=== PATIENT | female | born 1990 | race American Indian/Alaskan Native ===

== ENCOUNTER 2017-05-29 22:25 | Inpatient (IN) | payer MEDICARE ==
[2017-05-29] MEDS ORDERED: LACTATED RINGERS 1,000 ML IV ONE (22:57)
[2017-05-30] MEDS ORDERED: BRETHINE ONE (00:05)
[2017-05-30] MEDS ORDERED: BRETHINE SUB-Q ONE (00:08)
[2017-05-30 00:29] LABS: Bacteria,Urine 1+ /HPF (Negative); Bilirubin,Urine NEG (Negative); Blood,Urine NEG (Negative); Ketones,Urine NEG (Negative); Leukocyte Esterase,Urine MOD (Negative); Mucus,Urine FEW /HPF; Nitrite,Urine NEG (Negative); Protein,Urine <15 mg/dL mg/dL (Negative); Urobilinogen,Urine < 2.0 mg/dL (<2.0)
[2017-05-30] MEDS ORDERED: BRETHINE SUB-Q STA (01:19)
[2017-05-30] MEDS ORDERED: ALUM-MAG HYDROX-SIMETH 200-200-20MG/5ML PO PRN (01:54)
[2017-05-30] MEDS ORDERED: AMBIEN PO PRN (01:54)
[2017-05-30] MEDS ORDERED: BENADRYL PO PRN (01:54)
[2017-05-30] MEDS ORDERED: SENOKOT S PO PRN (01:54)
[2017-05-30] MEDS ORDERED: MYLICON PO PRN (01:54)
[2017-05-30] MEDS ORDERED: MILK OF MAGNESIA PO PRN (01:54)
[2017-05-30] MEDS ORDERED: COLACE PO PRN (01:54)
[2017-05-30] MEDS ORDERED: ZOFRAN IV PRN (01:54)
[2017-05-30] MEDS ORDERED: TYLENOL PO PRN (01:54)
[2017-05-30] MEDS ORDERED: MAGNESIUM SULFATE 4GM/100ML 4 GM/100 ML BAG IV ONE (02:23)
[2017-05-30] MEDS: CELESTONE SOLUSPAN IM SCH (02:40)
[2017-05-30] MEDS ORDERED: CELESTONE SOLUSPAN IM SCH (03:00)
[2017-05-30] MEDS: MAGNESIUM SULFATE 40GM/1000ML 40 GM/1,000 ML BAG IV SCH ×2 (04:03→22:21)
[2017-05-30 06:26] LABS: Basophils % (Auto) 0.6 % (0.0-1.8); Eosinophils % (Auto) 0.9 % (0.0-4.3); Hematocrit 31.3 % (30.3-42.9); Hemoglobin 10.4 gm/dl (10.1-14.3); Mean Corpuscular HGB Conc 33 % (30-34); Mean Corpuscular Hemoglobin 30 pg (28-32); Mean Corpuscular Volume 91 fl (79-97); Platelet Count 161 K/mm3 (140-440); Red Blood Count 3.45 M/mm3 (3.65-5.03); White Blood Count 6.8 K/mm3 (4.5-11.0)
[2017-05-30 06:39] LABS: Bilirubin,Urine NEG (Negative); Blood,Urine NEG (Negative); Ketones,Urine 20 mg/dL (Negative); Leukocyte Esterase,Urine SM (Negative); Mucus,Urine 1+ /HPF; Nitrite,Urine NEG (Negative); Protein,Urine <15 mg/dL mg/dL (Negative); Urobilinogen,Urine < 2.0 mg/dL (<2.0)
[2017-05-30] MEDS: PRENATAL VITAMIN PO SCH (10:52)
[2017-05-30] MEDS: ROCEPHIN/NS 1 GM/50 ML 1 GM/50 ML BAG IV SCH (11:21)
--- NOTE | 2017-05-30 12:03 | Consultation ---
History of Present Illness Consult date: 05/30/17 Requesting physician: FIORELLA CARL Reason for consult: contractions (26 YO EGA @ 25 weeks with twin gestation, admitted following vaginal bleeding. She was noted to have PTL following hospital assessment. She has received Betamethasone X 1, and is on MgSO4 for tocolysis, as well as neuroprotection. At this time she denies any contractions, or bleeding. She has been followed by [facility] and was started on vaginal Pg due to cervical shortening noted) Past History Past Medical History: no pertinent history - Obstetrical History : 2 Medications and Allergies Allergies Allergy/AdvReac Type Severity Reaction Status Date / Time shellfish derived Allergy Angioedema Verified 05/29/17 22:57 Home Medications Medication Instructions Recorded Confirmed Last Taken Type Vit No.130/Iron/FA 1 tab PO DAILY 05/30/17 05/30/17 05/29/17 13:00 History [ Tablet] Active Meds: Active Medications Acetaminophen (Tylenol) 650 mg PO Q4H PRN PRN Reason: Pain MILD(1-3)/Fever >100.5/GONZALEZ Al Hydrox/Mg Hydrox/Simethicone (Alum-Mag Hydrox-Simeth 300-951-32oa/5ml) 30 ml PO Q6H PRN PRN Reason: Indigestion Betamethasone Acet/Betameth SodPhos (Celestone Soluspan) 12 mg IM Q24H PETERSON Stop: 05/31/17 02:27 Last Admin: 05/30/17 02:40 Dose: 12 mg Diphenhydramine HCl (Benadryl) 25 mg PO Q6H PRN PRN Reason: Itching Docusate Sodium (Colace) 100 mg PO Q12H PRN PRN Reason: Constipation Lactated Ringer's (Lactated Ringers) 1,000 mls @ 125 mls/hr IV DIRECT PETERSON Magnesium Sulfate (Magnesium Sulfate 40gm/1000ml) 40 gm in 1,000 mls @ 50 mls/ hr IV DIRECT PETERSON PRN Reason: 2 GM/HR Last Admin: 05/30/17 04:03 Dose: 2 gm/hr, 50 mls/hr Ceftriaxone Sodium (Rocephin/Ns 1 Gm/50 Ml) 1 gm in 50 mls @ 100 mls/hr IV Q24HR PETERSON PRN Reason: Protocol Last Admin: 05/30/17 11:21 Dose: 100 mls/hr Magnesium Hydroxide (Milk Of Magnesia) 30 ml PO QHS PRN PRN Reason: Laxative Effect Multivitamins/Iron/Calcium ( Vitamin) 1 each PO QDAY [facility] Last Admin: 05/30/17 10:52 Dose: 1 each Ondansetron HCl (Zofran) 4 mg IV Q6H PRN PRN Reason: Nausea And Vomiting Senna/Docusate Sodium (Senokot S) 2 tab PO Q12H PRN PRN Reason: Laxative Effect Simethicone (Mylicon) 80 mg PO Q6H PRN PRN Reason: Gas pain Zolpidem Tartrate (Ambien) 10 mg PO ONCE PRN PRN Reason: Sleep Review of Systems All systems: negative - Vital Signs Vital signs: Vital Signs Pulse BP Pulse Ox 83 126/65 99 05/29/17 22:41 05/29/17 22:41 05/29/17 22:41 Temp Pulse Resp BP Pulse Ox 98.3 F 95 H 18 101/57 97 05/30/17 07:55 05/30/17 11:30 05/30/17 07:55 05/30/17 11:30 05/30/17 07:55 Results Result Diagrams: 05/30/17 Unknown Abnormal lab results 05/29/17 05/30/17 05/30/17 Range/Units 22:40 04:44 Unknown RBC 3.45 L (3.65-5.03) M/mm3 Edwards % (Auto) 7.5 H (0.0-7.3) % Urine WBC (Auto) 8.0 H 12.0 H (0.0-6.0) /HPF All other labs normal. Ultrasound: report reviewed Assessment and Plan IMPRESSIONS: 1. IUP @ 25 weeks with di/di twins 2. Vaginal bleeding has resolved 3. PTL, on MgSO4 4. Cervical shortening noted on [facility] assessment with patient taking vaginal progesterone RECOMMENDATIONS: 1. Continue with MgSO4 X 24 hrs total treatment 2. Betamethasone repeat X 1 3. Document her cervical exam 4. With no regular contractions noted X 24 hours, and no significant cervical change she can be evaluated for discharge
[2017-05-30] MEDS: LACTATED RINGERS 1,000 ML IV SCH (19:10)
[2017-05-31] MEDS: CELESTONE SOLUSPAN IM SCH (02:43)
--- NOTE | 2017-05-31 07:38 | History and Physical Report ---
History of Present Illness Date of examination: 05/29/17 Date of admission: 05/30/17 02:53 Chief complaint: vaginal spotting and twins wth cramping History of present illness: This is a 26 yo at 25 weeks with Di/Di twin that came into triage c/o spotting and lower abdominal pain for one day. Patient has a hx of shortened cervix and currently on vagianl progesterone suppositories started 1 day ago. Her OB care at [facility] include shortened cervix funeling hx of trich nausea -resolved HSV2 leg weakness-stable has appt with neuro Past History Past Surgical History: no surgical history [employer] History: trichomonas (treated this ) Family/Genetic History: none Social history: no significant social history, single. denies: smoking, alcohol abuse - Obstetrical History Expected Date of Delivery: 09/12/17 Actual Gestation: 25 Week(s) 1 Day(s) : 2 Para: 2 Hx # Term Pregnancies: 0 Number of Pregnancies: 0 Spontaneous Abortions: 1 Induced : 0 Number of Living Children: 0 Medications and Allergies Allergies Allergy/AdvReac Type Severity Reaction Status Date / Time shellfish derived Allergy Angioedema Verified 05/29/17 22:57 Home Medications Medication Instructions Recorded Confirmed Last Taken Type Vit No.130/Iron/FA 1 tab PO DAILY 05/30/17 05/30/17 05/29/17 13:00 History [ Tablet] Active Meds: Active Medications Acetaminophen (Tylenol) 650 mg PO Q4H PRN PRN Reason: Pain MILD(1-3)/Fever >100.5/GONZALEZ Al Hydrox/Mg Hydrox/Simethicone (Alum-Mag Hydrox-Simeth 138-043-22tu/5ml) 30 ml PO Q6H PRN PRN Reason: Indigestion Diphenhydramine HCl (Benadryl) 25 mg PO Q6H PRN PRN Reason: Itching Docusate Sodium (Colace) 100 mg PO Q12H PRN PRN Reason: Constipation Lactated Ringer's (Lactated Ringers) 1,000 mls @ 125 mls/hr IV DIRECT PETERSON Last Admin: 05/30/17 19:10 Dose: 75 mls/hr Magnesium Sulfate (Magnesium Sulfate 40gm/1000ml) 40 gm in 1,000 mls @ 50 mls/ hr IV DIRECT PETERSON PRN Reason: 2 GM/HR Last Admin: 05/30/17 22:21 Dose: 2 gm/hr, 50 mls/hr Ceftriaxone Sodium (Rocephin/Ns 1 Gm/50 Ml) 1 gm in 50 mls @ 100 mls/hr IV Q24HR [facility] PRN Reason: Protocol Last Admin: 05/30/17 11:21 Dose: 100 mls/hr Magnesium Hydroxide (Milk Of Magnesia) 30 ml PO QHS PRN PRN Reason: Laxative Effect Multivitamins/Iron/Calcium ( Vitamin) 1 each PO QDAY [facility] Last Admin: 05/30/17 10:52 Dose: 1 each Ondansetron HCl (Zofran) 4 mg IV Q6H PRN PRN Reason: Nausea And Vomiting Senna/Docusate Sodium (Senokot S) 2 tab PO Q12H PRN PRN Reason: Laxative Effect Simethicone (Mylicon) 80 mg PO Q6H PRN PRN Reason: Gas pain Zolpidem Tartrate (Ambien) 10 mg PO ONCE PRN PRN Reason: Sleep Review of Systems All systems: negative Genitourinary: vaginal bleeding (spotting), contractions - Vital Signs Vital signs: Vital Signs Pulse BP Pulse Ox 83 126/65 99 05/29/17 22:41 05/29/17 22:41 05/29/17 22:41 Temp Pulse Resp BP Pulse Ox 98.4 F 104 H 16 106/50 95 05/31/17 04:21 05/31/17 06:19 05/31/17 04:21 05/31/17 06:19 05/31/17 06:19 - Physical Exam Breasts: Positive: normal Cardiovascular: Regular rate, Normal S1 Abdomen: Positive: normal appearance, soft. Negative: distention, tenderness, guarding, normal bowel sounds Genitourinary (Female): Negative: normal external genitalia, normal perenium Vagina: Positive: normal moisture Cervix: Negative: lesion, ulceration Uterus: Positive: normal size, normal contour Anus/Rectum: Positive: normal perianal skin Deep Tendon Reflex Grade: Normal +2 - Obstetrical FHR: category 1 Uterine Contraction Monitor Mode: External Cervical Dilatation: 0 Uterine Tone Measurement Phase: Contraction Uterine Contraction Intensity: Mild Results Result Diagrams: 05/30/17 Unknown All other labs normal. Assessment and Plan 1. IUP @ 25 weeks with di/di twins 2. Vaginal bleeding/spotting resolved 3. PTL, startede on MgSO4 ( keep on for 24 hrs) 4. Cervical shortening noted on [facility] assessment with patient taking vaginal progesterone 5, BMZ given 6. [facility] consult intiated called Dr. Roberts ( agrees with plan) will see patient
--- NOTE | 2017-05-31 09:06 | Progress Note ---
Assessment and Plan 1. IUP @ 25 weeks with di/di twins 2. Vaginal bleeding/spotting resolved 3. PTL, started on MgSO4 ( keep on for 24 hrs) D/C today 4. Cervical shortening noted on [facility] assessment with patient taking vaginal progesterone 5, BMZ given 2nd dose earlier this am 6. [facility] consult appreciate recommended cervical exam, observation when stable d/ c home Subjective - Subjective Date of service: 05/31/17 Principal diagnosis: Twins Di/Di, contractions Interval history: This is a 26 yo at 25 weeks with Di/Di twin that came into triage c/o spotting and lower abdominal pain for one day. Patient has a hx of shortened cervix and currently on vagianl progesterone suppositories started 1 day ago. 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 Patient reports: movement normal, no new complaints, no loss of fluid, no vaginal bleeding (resolved), no contractions Objective - Vital Signs Vital Signs: Vital Signs - 12hr 05/30/17 05/30/17 05/30/17 21:02 21:03 21:09 Temperature 99.0 F Pulse Rate 100 H 100 H Respiratory 18 Rate Blood Pressure 112/56 Blood Pressure [Right Arm] O2 Sat by Pulse 100 Oximetry 05/30/17 05/30/17 05/30/17 22:19 23:01 23:06 Temperature Pulse Rate 94 H 106 H 98 H Respiratory Rate Blood Pressure 119/64 Blood Pressure [Right Arm] O2 Sat by Pulse 99 98 98 Oximetry 05/30/17 05/30/17 05/30/17 23:11 23:16 23:20 Temperature Pulse Rate 100 H 102 H 96 H Respiratory Rate Blood Pressure 118/63 Blood Pressure [Right Arm] O2 Sat by Pulse 99 98 Oximetry 05/30/17 05/30/17 05/30/17 23:21 23:26 23:31 Temperature Pulse Rate 101 H 99 H 97 H Respiratory Rate Blood Pressure Blood Pressure [Right Arm] O2 Sat by Pulse 97 99 99 Oximetry 05/30/17 05/30/17 05/30/17 23:36 23:41 23:46 Temperature Pulse Rate 98 H 94 H 92 H Respiratory Rate Blood Pressure Blood Pressure [Right Arm] O2 Sat by Pulse 99 100 99 Oximetry 05/30/17 05/30/1705/31/17 23:51 23:56 00:01 Temperature Pulse Rate 101 H 99 H 100 H Respiratory Rate Blood Pressure Blood Pressure [Right Arm] O2 Sat by Pulse 99 99 99 Oximetry 05/31/17 05/31/17 05/31/17 00:06 00:11 00:16 Temperature Pulse Rate 100 H 96 H 95 H Respiratory Rate Blood Pressure Blood Pressure [Right Arm] O2 Sat by Pulse 98 99 99 Oximetry 05/31/17 05/31/17 05/31/17 00:21 00:26 01:44 Temperature 98.2 F Pulse Rate 98 H 92 H Respiratory 18 Rate Blood Pressure 104/51 106/55 Blood Pressure [Right Arm] O2 Sat by Pulse 99 Oximetry 05/31/17 05/31/17 05/31/17 02:43 04:14 04:21 Temperature 98.4 F Pulse Rate 113 H 97 H Respiratory 16 Rate Blood Pressure 104/56 113/61 Blood Pressure [Right Arm] O2 Sat by Pulse 97 100 Oximetry 05/31/17 05/31/17 05/31/17 06:19 07:51 07:55 Temperature 98.5 F Pulse Rate 104 H 102 H Respiratory 18 Rate Blood Pressure 106/50 119/62 Blood Pressure 119/62 [Right Arm] O2 Sat by Pulse 95 97 97 Oximetry - Exam Breasts: deferred Cardiovascular: Regular rate, Normal S1 Lungs: Clear to auscultation, Normal air movement Abdomen: Present: normal appearance, soft, normal bowel sounds. Absent: tenderness Vulva: both: normal Uterus: Present: normal, fundal height above umbilicus FHR: category 1 Uterine Contraction Monitor Mode: External Extremities: normal Deep Tendon Reflex Grade: Normal +2 - Labs Labs: Abnormal Labs 05/29/17 05/30/17 05/30/17 22:40 04:44 Unknown RBC 3.45 L Addison % (Auto) 7.5 H Urine WBC (Auto) 8.0 H 12.0 H
[2017-05-31] MEDS: LACTATED RINGERS 1,000 ML IV SCH ×2 (09:43→17:52)
[2017-05-31] MEDS: ROCEPHIN/NS 1 GM/50 ML 1 GM/50 ML BAG IV SCH (10:16)
[2017-05-31] MEDS: PRENATAL VITAMIN PO SCH (10:18)
[2017-06-01] MEDS: LACTATED RINGERS 1,000 ML IV SCH (00:45)
--- NOTE | 2017-06-01 08:08 | Ultrasound Report ---
OB ULTRASOUND FOLLOWUP ULTRASOUND OB FOLLOWUP AND GESTATION History: labor, twin gestation. Comparison: None at this facility. Technique: Transabdominal ultrasound with Doppler interrogation. Gestation: Twin A Position: Cephalic Amniotic Fluid: Normal REUBEN = 2.6 cm largest vertical pocket Placenta: Fundal Placental Grade: 0 Heart Rate: 152 BPM BPD: 6.0 cm = 24 w 4 d HC: 22.4 cm = 24 w 2 d AC: 19.7 cm = 24 w 2 d FL: 4.5 cm = 24 w 5 d HC/AC Ratio: 1.13 Estimated Weight: 723 grams US Gest. Age = 24 w 3 d EDC: 09/16/17 Gestation: Twin B Position: Breech Amniotic Fluid: Normal REUBEN = 4.7 cm largest vertical pocket Placenta: Posterior Placental Grade: 0 Heart Rate: 160 BPM BPD: 5.9 cm = 24 w 0 d HC: 22.0 cm = 24 w 0 d AC: 20.1 cm = 24 w 4 d FL: 4.3 cm = 24 w 0 d HC/AC Ratio: 1.09 Estimated Weight: 710 grams US Gest. Age = 24 w 1 d EDC: 09/18/17
[2017-06-01] MEDS: PRENATAL VITAMIN PO SCH (10:40)
[2017-06-01 12:10] VITALS: BP 128/60
--- NOTE | 2017-06-01 13:20 | Progress Note ---
Assessment and Plan 1. IUP @ 25w1d weeks with di/di twins 2. Vaginal bleeding/spotting resolved 3. PTL s/p MgSO4 s/p 24 hrs 4. Cervical shortening noted on [facility] assessment with patient taking vaginal progesterone 5, BMZ given 6. Plan to discharge today with follow up later this week with primary OB and [facility]. Subjective - Subjective Date of service: 06/01/17 Principal diagnosis: Twins Di/Di, contractions Interval history: Pt denies further vaginal bleeding or contractions. She denies obstetric complaints. Patient reports: movement normal, no new complaints, no loss of fluid, no vaginal bleeding (resolved), no contractions Objective - Vital Signs Vital Signs: Vital Signs - 12hr 06/01/17 06/01/17 06/01/17 01:22 01:27 01:32 Temperature Pulse Rate 96 H 86 77 Pulse Rate [ From Monitor] Respiratory Rate Blood Pressure Blood Pressure [Right Arm] O2 Sat by Pulse 97 98 99 Oximetry 06/01/17 06/01/17 06/01/17 01:37 01:42 01:47 Temperature Pulse Rate 85 92 H 96 H Pulse Rate [ From Monitor] Respiratory Rate Blood Pressure Blood Pressure [Right Arm] O2 Sat by Pulse 98 98 97 Oximetry 06/01/17 06/01/17 06/01/17 01:49 04:15 07:30 Temperature 98.4 F Pulse Rate 71 108 H 81 Pulse Rate [ 108 H From Monitor] Respiratory 20 Rate Blood Pressure 93/52 107/55 Blood Pressure 93/52 [Right Arm] O2 Sat by Pulse 78 L Oximetry 06/01/17 06/01/17 07:55 12:07 Temperature 99.2 F Pulse Rate 83 Pulse Rate [ 81 From Monitor] Respiratory 18 Rate Blood Pressure 128/60 Blood Pressure 107/55 [Right Arm] O2 Sat by Pulse Oximetry - Exam Breasts: deferred Cardiovascular: Regular rate Lungs: Clear to auscultation Abdomen: Present: soft (gravid) Uterus: Present: normal (gravid ) FHR: auscultation normal Uterine Contraction Monitor Mode: External Uterine Contraction Pattern: Absent Uterine Tone Measurement Phase: Resting Extremities: normal - Labs Labs: Abnormal Labs 05/29/17 05/30/17 05/30/17 22:40 04:44 Unknown RBC 3.45 L Brewster % (Auto) 7.5 H Urine WBC (Auto) 8.0 H 12.0 H
--- NOTE | 2017-06-01 13:25 | Discharge Summary ---
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 Notified:: message left on ans machine Phone number called:: [phone] Was contact made?: No Time called:: 08:28 Comment:: labor, shortened cervix; eval home situation 05/30/17 01:54 Consult to Physician [CONS] Routine Consulting Provider: JOSE ROBERTS Reason For Exam: contractions, twin, hx of shortened cervix Place consult to:: [facility] Notified:: yes Phone number called:: [phone] Was contact made?: Yes If yes, 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 She received magnesium sulfate for tocolysis and neuroprotection as well as two doses of betamethasone. She was observed until hospital day #3 when she met discharge criteria. She will follow up in the office with Dr Roberts and Dr Carl within 7 days. labor precautions have been reviewed. Condition at discharge: Stable Disposition: DC-01 TO HOME OR SELFCARE - Discharge Diagnoses (1) Monochorionic diamniotic twin gestation Status: Acute Qualifiers: Trimester: T (2) uterine contractions in second trimester, antepartum Status: Acute Plan - Provider Discharge Summary Activity: routine Diet: routine Additional instructions: [] Smoking cessation referral if applicable(refer to patient education folder for contact #) [] Refer to [facility] Booklet Call your doctor immediately for: * Fever > 100.5 * Heavy vaginal bleeding ( >1 pad per hour) * Severe persistent headache * Shortness of breath * Reddened, hot, painful area to leg or breast * Drainage or odor from incision. * Keep incision clean and dry at all times and follow doctor's instructions regarding bathing/showering - Follow up plan Follow up: FIORELLA CARL MD [Primary Care Provider] - 7 Days JOSE ROBERTS MD [Staff Physician] - 7 Days
--- NOTE | 2017-06-01 16:08 | Admit Criteria Form ---
Admission Criteria Documentation: OBSTETRIC AND GYNECOLOGIC DISEASE GRG Clinical Indications for Admission to Inpatient Care (Place 'X' for any and all applicable criteria): Hospital admission is needed for appropriate care of the patient because of 1 or more of the following (1)(2)(3): [ ]I. Hemodynamic instability, as indicated by 1 or more of the following (1)( 2)(3)(4)(5): [ ]a) Vital signs or other findings not as expected for chronic patient condition or baseline [ ]b) Instability indicated by 1 or more of the following: [ ]i) Hypotension [ ]ii) Symptomatic tachycardia unresponsive to treatment (eg, analgesia, fluids, sedation as indicated) [ ]iii) Inadequate perfusion indicated by 1 or more of the following: [ ]A. Lactic acidosis (greater than 2 mmol/ L) [ ]B. New abnormal capillary refill ( greater than 3 seconds) [ ]C. Reduced urine output [ ]D. New altered mental status [ ]iv) Orthostatic vital sign changes unresponsive to treatment (eg, fluids) [ ]v) Multiple IV fluid boluses required to maintain adequate blood pressure or perfusion [ ]vi) IV inotropic or vasopressor medication required to maintain adequate blood pressure or perfusion [ ]II. Obstetric infection requiring hospitalization indicated by 1 or more of the following(13)(14): [ ]a) Chorioamnionitis [ ]b) Endometritis (except mild endometritis) [ ]c) Pelvic abscess [ ]d) Peritonitis [ ]e) Septic pelvic thrombophlebitis [ ]III. Amniotic fluid or pulmonary embolism(4)(5)(6) [ ]IV. Suspected peritonitis or ectopic requiring monitoring beyond scope of 24 hours or observation care(7)(8) [ ]V. compromise requiring hospitalization indicated by ALL of the following(9)(10): [ ]a) compromise indicated by 1 or more of the following(11): [ ]i) Abnormal heart rate monitoring [ ]ii) Abnormal contraction stress test [ ]iii) Abnormal biophysical profile [ ]iv) Abnormal Doppler flow in vessels (ie, Doppler velocimetry) (12) [ ]b) Persistence of compromise indicators during evaluation and observation monitoring [ ]. Ovarian hyperstimulation syndrome requiring hospitalization[A] indicated by ALL of the following(15): [ ]a) Recent ovarian stimulation with gonadotropins, or evidence on ultrasound of spontaneous emergence of large number of ovarian follicles [ ]b) Evidence of severe ovarian hyperstimulation syndrome indicated by 1 or more of the following: [ ]i) Abdominal pain unresponsive to oral therapy [ ]ii) Acute respiratory distress syndrome [ ]iii) Electrolyte imbalance ( eg, hyponatremia, hyperkalemia) [ ]iv) Elevated liver enzymes [ ]v) Evidence of thromboembolism [ ]vi) Hemoconcentration (hematocrit greater than 45 % (0.45)) [ ]vii) Inability to maintain oral intake adequate to prevent hemoconcentration [ ]viii) Marked hypotension from baseline (eg, SBP 20 mmHg below patients usual pressure) [ ]ix) Oliguria or anuria [ ]x) Ovarian torsion [ ]xi) Pleural or pericardial effusion on x-ray or echocardiogram [ ]xii) Rapid increase in serum creatinine to greater than 1.2 mg/dL (106 micromoles/L) or creatinine clearance less than 50 mL/min/1.73m2 (0.84 mL/ sec/1.73m2) [ ]xiii) Ruptured ovarian cyst with hemorrhage [ ]xiv) Severe abdominal pain or peritoneal signs [ ]xv) Tense ascites that cannot be managed with paracentesis in outpatient setting [ ]VII.Pelvic infection requiring hospitalization indicated by 1 or more of the following (16): [ ]a) Outpatient treatment has failed or is not appropriate (eg, inpatient monitoring required) [ ]b) Pelvic abscess [ ]c) Surgical emergency cannot be excluded (eg, rigid abdomen) [ ]d) Vomiting precluding outpatient and observation care management VIII. loss complications requiring inpatient medical treatment indicated by 1 or more of the following (4)(7)(9): [ ]a) Fever [ ]b) Peritonitis [ ]c) Sepsis [ ]d) Severe abdominal pain [ ]IX. or patient requiring monitoring for severe heart failure, pulmonary disease, or other comorbid condition (eg, peripartum cardiomyopathy) (4)(17) [ ]X. patient with rupture of membranes requiring hospitalization indicated by ANY ONE of the following: [ ]a) Chorioamnionitis, cloudy amniotic fluid, or other evidence of infection [ ]b) compromise or other need for monitoring (11) [ ]c) Gestation longer than 23 weeks and ANY ONE of the following: [ ]i) Abnormal (noncephalic) presentation [ ]ii) Inadequate home environment (eg, home too far from hospital, unable to rapidly return to hospital) [ ]d) Temperature greater than 100.4 degrees F (38 degrees C)( oral) [ ]e) Threatened labor requiring monitoring beyond scope (eg, over 24 hours) of observation Care [ ] XI. complications, including severe lacerations, infections, or retained placenta (19) [ ] XII.Uterine bleeding with high-risk features indicated by ANY ONE of the following (4): [ ]a) Active major hemorrhage (eg, hemorrhage) [ ]b) Coagulopathy with active bleeding [ ]c) Gestational trophoblastic disease (eg, molar ) (20 ) [ ]d) (longer than 23 weeks) and ANY ONE of the following: [ ]i) Pain [ ]ii) Placental abruption, known or suspected [ ]iii) Placenta accrete, known or suspected(21) [ ]iv) Placenta previa, known or suspected [ ]v) Vasa previa [ ]e) Severe anemia [ X]XIII. Obstetric or Gynecologic Disease, condition or symptom for which ANY ONE of the following: [X ]a) Emergency and observation care have failed or are not considered appropriate ( Also use General Criteria: Observation Care Criteria as appropriate) [ ]b) Presence of a General Admission Criteria or Pediatric General Admission Criteria The original [facility] content created by [facility] has been revised. The portions of the content which have been revised are identified through the use of italic text or in bold, and [facility] has neither reviewed nor approved the modified material.All other unmodified content is copyright [facility]. Please see references footnoted in the original [facility] edition 2016 Admission Criteria Met: Yes
== END 2017-06-01 15:00 | disposition home or self-care (01) | DRG 778 ==
LOC: TRG 22:25 → LD 05-30 02:53 → OBSVTOIN 06-01 09:52
PROVIDERS: ADMIT Obstetrics & Gynecology; ATTEND Obstetrics & Gynecology
DX: O60.02 Preterm labor without delivery, second trimester (principal); O26.872 Cervical shortening, second trimester; O30.032 Twin pregnancy, monochorionic/diamniotic, second trimester; O46.8X2 Other antepartum hemorrhage, second trimester; O26.852 Spotting complicating pregnancy, second trimester; Z3A.25 25 weeks gestation of pregnancy
CPT/HCPCS: 36415; 76816; 81001; 85025; 86850; 86900; 86901; 87116; G0378; J0696; J0702; J2405; J3105; J3475; J7120

== ENCOUNTER 2021-07-09 15:57 | Inpatient (IN) | payer MEDICARE ==
[2021-07-10] MEDS ORDERED: ONDANSETRON 4 MG/2 ML INJ IV PRN (09:00)
[2021-07-10] MEDS ORDERED: D5W/LACTATED RINGERS 1,000 ML IV SCH (09:00)
[2021-07-10 18:11] LABS: Basophils % (Auto) 0.1 % (0.0-1.8); Eosinophils % (Auto) 0.5 % (0.0-4.3); Hematocrit 36.4 % (30.3-42.9); Hemoglobin 12.2 gm/dl (10.1-14.3); Lymphocytes # (Auto) 1.7 K/mm3 (1.2-5.4); Lymphocytes % (Auto) 23.2 % (13.4-35.0); Mean Corpuscular HGB Conc 34 % (30-34); Mean Corpuscular Volume 89 fl (79-97); Monocytes # (Auto) 0.4 K/mm3 (0.0-0.8); Monocytes % (Auto) 5.1 % (0.0-7.3); Platelet Count 168 K/mm3 (140-440); Red Blood Count 4.09 M/mm3 (3.65-5.03)
[2021-07-10 18:13] LABS: Blood Urea Nitrogen 5 mg/dL (7-17); Calcium 9.6 mg/dL (8.4-10.2); Hemolysis Index 5
[2021-07-10 18:18] LABS: BUN/Creatinine Ratio 13
[2021-07-10 18:26] LABS: Hepatitis C Virus Antibody Non-Reactive (NonReactive)
[2021-07-10 18:29] LABS: Hepatitis B Surface Antigen Nonreactive (Negative)
[2021-07-10 19:54] LABS: Bilirubin,Urine NEG (Negative); Blood,Urine NEG (Negative); Color,Urine Yellow (Yellow); Mucus,Urine 3+ /HPF
[2021-07-10] MEDS ORDERED: MULTIPLE VITAMIN INJ, ADULT 10 ML in D5W/LACTATED RINGERS 1,000 ML IV ONE (22:00)
[2021-07-10] MEDS: D5W/LACTATED RINGERS 1,000 ML IV SCH (22:43)
[2021-07-10] MEDS: PROMETHAZINE 25 MG RECT SUPP PR SCH (22:43)
[2021-07-10] MEDS: METOCLOPRAMIDE 10 MG/2 ML INJ IV SCH (22:44)
[2021-07-11] MEDS: D5W/LACTATED RINGERS 1,000 ML IV SCH (00:32)
[2021-07-11] MEDS: METOCLOPRAMIDE 10 MG/2 ML INJ IV SCH ×3 (05:18→17:35)
[2021-07-11] MEDS: PROMETHAZINE 25 MG RECT SUPP PR SCH ×3 (05:18→18:54)
--- NOTE | 2021-07-11 07:40 | History and Physical Report ---
History of Present Illness Date of examination: 07/11/21 Date of admission: 07/10/21 17:10 Chief complaint: nausea and vomiting History of present illness: Pt is a 31 year old -[place] female ILSA 12/28/21 at 15w5d who presents with inability to tolerate solid and liquid food for the past two weeks despite PO meds. She has had two visits at [facility] complicated by prior , h/o preeclampsia in prior , constipa tion, and genital herpes without lesions or prodrome. 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: herpes Family/Genetic History: none Social history: no significant social history - Obstetrical History Expected Date of Delivery: 12/28/21 Actual Gestation: 15 Week(s) 5 Day(s) : 3 Para: 0 Hx # Term Pregnancies: 0 Number of Pregnancies: 1 Spontaneous Abortions: 1 Induced : 0 Number of Living Children: 2 (one set of twins ) Medications and Allergies Allergies Allergy/AdvReac Type Severity Reaction Status Date / Time shellfish derived Allergy Angioedema Verified 05/29/17 22:57 Home Medications Medication Instructions Recorded Confirmed Last Taken Type Vit No.130/Iron/Folic 1 tab PO DAILY 05/30/17 08/13/17 05/29/17 13:00 History [ Tablet] Ferrous Sulfate [Feosol 325 MG tab] 325 mg PO BID #60 tablet 08/14/17 Unknown Rx Ibuprofen [Motrin] 800 mg PO Q8HR PRN #30 tablet 08/14/17 Unknown Rx labetaloL [Labetalol 100mg TAB] 100 mg PO BID #60 tablet 08/14/17 Unknown Rx oxyCODONE /ACETAMINOPHEN [Percocet 1 tab PO Q6HR PRN #30 tablet 08/14/17 Unknown Rx 5/325] Active Meds: Active Medications Dextrose/Lactated Ringer's (D5lr) 1,000 mls @ 500 mls/hr IV DIRECT PETERSON Stop: 07/11/21 10:59 Last Admin: 07/11/21 00:32 Dose: 500 mls/hr Documented by: Dextrose/Lactated Ringer's (D5lr) 1,000 mls @ 150 mls/hr IV DIRECT PETERSON Metoclopramide HCl (Metoclopramide 10 Mg/2 Ml Inj) 10 mg IV Q6H [facility] Last Admin: 07/11/21 05:18 Dose: 10 mg Documented by: Multivitamins/Iron/Calcium ( [id number] Fumarate-Folic Acid Vit Tab) 1 each PO QDAY [facility] Ondansetron HCl (Ondansetron 4 Mg/2 Ml Inj) 4 mg IV Q6H PRN PRN Reason: N/V unrelieved by Regluca Promethazine HCl (Promethazine 25 Mg Rect Supp) 25 mg MD Q6H [facility] Last Admin: 07/11/21 05:18 Dose: Not Given Documented by: Review of Systems All systems: negative - Vital Signs Vital signs: Vital Signs Temp Pulse Resp Pulse Ox 98.6 F 74 20 100 07/10/21 18:10 07/10/21 18:10 07/10/21 18:10 07/10/21 18:10 Temp Pulse Resp BP Pulse Ox 98.2 F 84 20 96/52 97 07/11/21 04:31 07/11/21 04:31 07/11/21 04:31 07/11/21 04:31 07/11/21 04:31 - Physical Exam Breasts: Positive: deferred Abdomen: Positive: soft (obese ) Extremities: Positive: normal Results Result Diagrams: 07/10/21 17:40 07/10/21 17:40 Abnormal lab results 07/10/21 07/10/21 07/10/21 Range/Units 17:40 17:40 18:40 Seg Neutrophils % 71.1 H (40.0-70.0) % Sodium 136 L (137-145) mmol/L BUN 5 L (7-17) mg/dL Creatinine 0.4 L (0.6-1.2) mg/dL U Epithel Cells (Auto) 36.0 H (0-13.0) /HPF All other labs normal. Assessment and Plan A:IUP at 15w5d Hyperemesis Prior x 1 Genital Herpes Obesity P: Admit for IV hydration Antiemetics PRN Advanced diet as tolerated
[2021-07-11] MEDS: PRENATAL VIT27-FE FUMARATE-FOLIC ACID VIT TAB PO SCH (11:35)
[2021-07-12] MEDS ORDERED: ACETAMINOPHEN 325 MG TAB PO PRN (00:28)
[2021-07-12] MEDS: PROMETHAZINE 25 MG RECT SUPP PR SCH ×2 (00:30→03:00)
[2021-07-12] MEDS: METOCLOPRAMIDE 10 MG/2 ML INJ IV SCH ×2 (00:30→05:29)
[2021-07-12] MEDS: METOCLOPRAMIDE 10 MG TAB PO PRN ×2 (00:39→05:30)
[2021-07-12 07:51] VITALS: BP 108/70
--- NOTE | 2021-07-12 08:36 | Progress Note ---
Assessment and Plan - Patient Problems (1) Hyperemesis gravidarum Current Visit: Yes Status: Acute Plan to address problem: Patient demonstrating clinical improvement Subjective - Subjective Date of service: 07/12/21 Interval history: Patient reports tolerating p.o. intake yesterday. She denies any emesis today. Patient reports: no new complaints Objective - Vital Signs Vital Signs: Vital Signs - 12hr 07/12/21 07/12/21 07/12/21 00:13 00:38 04:30 Temperature 98.0 F 98.6 F Pulse Rate 83 80 Respiratory 18 16 16 Rate Blood Pressure 100/58 Blood Pressure 107/78 [Left] O2 Sat by Pulse 98 Oximetry 07/12/21 07:31 Temperature 97.6 F Pulse Rate 83 Respiratory 18 Rate Blood Pressure 108/70 Blood Pressure [Left] O2 Sat by Pulse 100 Oximetry - Labs Labs: Abnormal Labs 07/10/21 07/10/21 07/10/21 17:40 17:40 18:40 Seg Neutrophils % 71.1 H Sodium 136 L BUN 5 L Creatinine 0.4 L U Epithel Cells (Auto) 36.0 H
--- NOTE | 2021-07-12 08:38 | Discharge Summary ---
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 She received IV hydration and antiemetic therapy with improvement of her symptoms. Condition at discharge: Good Disposition: 01 HOME / SELF CARE / HOMELESS - Discharge Diagnoses (1) Hyperemesis gravidarum Status: Acute Plan - Discharge Medications Prescriptions: Ondansetron HCl [Zofran] 4 mg PO Q8H PRN #20 tablet PRN Reason: Nausea - Provider Discharge Summary Activity: no heavy lifting 4 weeks Diet: routine Instructions: routine Additional instructions: [] Smoking cessation referral if applicable(refer to patient education folder for contact #) [] Refer to [facility]'s [facility] Booklet Call your doctor immediately for: * Fever > 100.5 * Heavy vaginal bleeding ( >1 pad per hour) * Severe persistent headache * Shortness of breath * Reddened, hot, painful area to leg or breast * Drainage or odor from incision. * Keep incision clean and dry at all times and follow doctor's instructions regarding bathing/showering - Follow up plan
[2021-07-12] MEDS: PRENATAL VIT27-FE FUMARATE-FOLIC ACID VIT TAB PO SCH (10:02)
[2021-07-12] MEDS ORDERED: METOCLOPRAMIDE 10 MG TAB PO SCH (12:00)
== END 2021-07-12 11:45 | disposition home or self-care (01) | DRG 832 ==
LOC: 3A 15:57 → UNDOADMIN 15:57 → OB 07-10 17:10
PROVIDERS: ADMIT Obstetrics & Gynecology; ATTEND Obstetrics & Gynecology
DX: O21.0 Mild hyperemesis gravidarum (principal); O98.312 Other infections with a predominantly sexual mode of transmission complicating pregnancy, second trimester; O99.212 Obesity complicating pregnancy, second trimester; A60.00 Herpesviral infection of urogenital system, unspecified; Z3A.15 15 weeks gestation of pregnancy; O34.219 Maternal care for unspecified type scar from previous cesarean delivery
CPT/HCPCS: 36415; 80048; 80074; 81001; 82150; 83690; 84443; 85025; G0378; J2765; J7121

== ENCOUNTER 2021-09-27 20:45 | Outpatient (CLI) | payer MEDICARE ==
[2021-09-27 21:43] VITALS: BP 112/68
[2021-09-27] MEDS ORDERED: LACTATED RINGERS 1,000 ML IV ONE (21:56)
[2021-09-27 22:25] LABS: Bilirubin,Urine NEG (Negative); Blood,Urine NEG (Negative); Color,Urine Yellow (Yellow); Mucus,Urine 2+ /HPF
[2021-09-27] MEDS ORDERED: ONDANSETRON 4 MG/2 ML INJ IV ONE (23:58)
== END 2021-09-28 00:25 | disposition home or self-care (01) ==
LOC: TRG 20:45 → APU 20:47 → TRG 09-28 00:25
PROVIDERS: ATTEND Obstetrics & Gynecology
DX: O26.892 Other specified pregnancy related conditions, second trimester (principal); R42 Dizziness and giddiness; O21.2 Late vomiting of pregnancy; O10.912 Unspecified pre-existing hypertension complicating pregnancy, second trimester; Z87.891 Personal history of nicotine dependence; Z3A.23 23 weeks gestation of pregnancy
CPT/HCPCS: 59025; 81001; 96361; 96374; J2405; J7120; 96360; J3490

== ENCOUNTER 2021-11-11 18:53 | Outpatient (CLI) | payer MEDICARE ==
[2021-11-11 19:45] VITALS: BP 120/70
[2021-11-11] MEDS ORDERED: LACTATED RINGERS 500 ML IV ONE (20:10)
[2021-11-11] MEDS ORDERED: BETAMET ACET/BETAMET NA PH 6 MG/ML INJ 5 ML MDV IM ONE (20:10)
== END 2021-11-11 20:18 | disposition home or self-care (01) ==
LOC: TRG 18:53 → APU 18:54 → TRG 20:18
PROVIDERS: ATTEND Obstetrics & Gynecology
DX: O42.913 Preterm premature rupture of membranes, unspecified as to length of time between rupture and onset of labor, third trimester (principal); O13.3 Gestational [pregnancy-induced] hypertension without significant proteinuria, third trimester; O99.013 Anemia complicating pregnancy, third trimester; D64.9 Anemia, unspecified; Z87.891 Personal history of nicotine dependence; Z3A.33 33 weeks gestation of pregnancy
CPT/HCPCS: 59025; 96372; J0702

== ENCOUNTER 2021-11-23 13:19 | Observation (INO) | payer MEDICARE ==
[2021-11-23] MEDS ORDERED: LACTATED RINGERS 500 ML IV ONE (14:00)
[2021-11-23] MEDS ORDERED: TERBUTALINE 1 MG/1 ML INJ SUB-Q SCH (15:00)
[2021-11-23] MEDS ORDERED: NIFEdipine*For Tocolysis only* 10 MG CAPSULE ONE (15:22)
[2021-11-23] MEDS ORDERED: NIFEdipine*For Tocolysis only* 10 MG CAPSULE PO ONE (16:00)
[2021-11-23] MEDS ORDERED: LACTATED RINGERS 1,000 ML IV ONE (16:00)
[2021-11-23 16:08] LABS: Bacteria,Urine 1+ /HPF (Negative); Bilirubin,Urine NEG (Negative); Blood,Urine SM (Negative); Color,Urine Yellow (Yellow); Mucus,Urine FEW /HPF; Urobilinogen,Urine < 2.0 mg/dL (<2.0)
[2021-11-24 02:07] VITALS: BP 108/63
== END 2021-11-24 03:15 | disposition home or self-care (01) ==
LOC: TRG 13:19 → INTOOBSV 16:35 → LD 16:35
PROVIDERS: ADMIT Obstetrics & Gynecology; ATTEND Obstetrics & Gynecology
DX: O62.9 Abnormality of forces of labor, unspecified (principal); Z3A.35 35 weeks gestation of pregnancy; Z98.891 History of uterine scar from previous surgery; Z79.899 Other long term (current) drug therapy; Z98.890 Other specified postprocedural states; Z87.891 Personal history of nicotine dependence
CPT/HCPCS: 81001; 96372; G0378; J3105; J7120